=== PATIENT | female | born 1970 | race Asian ===

== ENCOUNTER 2016-11-11 14:16 | Inpatient (IN) | payer SELFPAY ==
[~2016-11-11] VITALS: Ht 162.6 cm; Wt 61.7 kg
[2016-11-11 14:30] VITALS: BP 157/112; PULSE 89; RESP 16; TEMP 97; O2SAT 97
[2016-11-11] MEDS ORDERED: ONDANSETRON 4 MG ODT TAB PO ONE (15:30)
[2016-11-11] MEDS ORDERED: ACETAMINOPHEN 325 MG TABLET PO ONE (15:30)
[2016-11-11 15:33] LABS: POTASSIUM 3.5 mmol/L (3.5-5.1)
[2016-11-11 15:34] LABS: CREATININE 0.7 mg/dL (0.55-1.30)
[2016-11-11 15:38] LABS: CALCIUM 8.4 mg/dL (8.4-11.0)
[2016-11-11 15:49] LABS: BILIRUBIN,URINE NEGATIVE (NEGATIVE); BLOOD, URINE 1+ (NEGATIVE); CLARITY/URINE CLEAR (CLEAR); COLOR,URINE YELLOW (YELLOW); GLUCOSE,URINE 2+ (NEGATIVE); KETONES,URINE 3+ (NEGATIVE); LEUKOCYTE ESTERASE ,URINE NEGATIVE (NEGATIVE); NITRITE, URINE NEGATIVE (NEGATIVE); PROTEIN URINE 1+ (NEGATIVE); UROBILINOGEN,URINE 0.2 (0.2-1.0)
[2016-11-11 15:52] LABS: HEMATOCRIT 41.1 % (36-48); HEMOGLOBIN 14.2 g/dL (12.0-16.0); MEAN CORPUSCULAR HEMOGLOBIN 30 pg (27-31); MEAN CORPUSCULAR HGB CONC 35 % (32-36); MEAN CORPUSCULAR VOLUME 87 fL (79.0-98.0); PLATELET COUNT (AUTO) 355 K/uL (130-430); RED CELL DISTRIBUTION WIDTH 12.8 % (9.0-15.0); WHITE BLOOD COUNT (AUTO) 12.2 K/uL (4.8-10.8)
[2016-11-11 15:53] LABS: RED BLOOD CELL COUNT(AUTO) 4.51 MIL/uL (4.2-6.2)
[2016-11-11 16:23] LABS: ATYPICAL LYMPHOCYTES % 0 % (0-0); BAND % (MANUAL) 4 % (0-6); BASOPHILS % (MANUAL) 0 % (0-2); EOSINOPHILS % (MANUAL) 0 % (0-7); LYMPHOCYTES % (MANUAL) 18 % (20-46); MONOCYTES % (MANUAL) 3 % (0-11)
[2016-11-11 16:24] LABS: INR 0.9 (0.8-1.2); PROTHROMBIN TIME 9.8 SECS (9.5-12.5)
[2016-11-11 16:33] LABS: ALBUMIN 3.8 g/dL (3.4-4.8); TOTAL BILIRUBIN 0.7 mg/dL (0.0-1.0); TOTAL PROTEIN, SERUM 8.6 g/dL (6.4-8.3)
[2016-11-11 16:59] LABS: RBC,URINE 0-3 /HPF (0-3); WBC,URINE 0-3 /HPF (0-3)
[2016-11-11 17:00] LABS: BACTERIA,URINE FEW /HPF (None Seen); MUCUS,URINE 2+ /LPF (None Seen)
[2016-11-11] MEDS ORDERED: ONDANSETRON HCL 4 MG/2 ML VIAL IVP ONE ×2 (17:00→18:30)
[2016-11-11] MEDS ORDERED: MORPHINE 4 MG/ML INJ. SYRINGE IVP ONE ×2 (17:00→18:30)
[2016-11-11] MEDS ORDERED: NACL 0.9% 1,000 ML IV ONE ×2 (17:00→18:30)
[2016-11-11] MEDS ORDERED: OCTREOTIDE ACETATE 100 MCG/ML AMP IVP ONE (18:00)
[2016-11-11 19:30] VITALS: BP 174/88; PULSE 95; RESP 16; TEMP 97.6; O2SAT 96
[2016-11-11] MEDS ORDERED: ONDANSETRON HCL 4 MG/2 ML VIAL IVP PRN (19:30)
[2016-11-11] MEDS ORDERED: INSULIN ASPART 100 UNITS/ML, 10 ML VIAL (NovoLOG) SUBCUT PRN (19:30)
[2016-11-11] MEDS ORDERED: MORPHINE 2 MG/ML INJ. SYRINGE IVP ONE (19:30)
[2016-11-11] MEDS ORDERED: ACETAMINOPHEN 650 MG SUPP.RECT RC PRN (19:30)
[2016-11-11] MEDS ORDERED: MORPHINE 2 MG/ML INJ. SYRINGE IVP PRN (19:30)
[2016-11-11] MEDS: PANTOPRAZOLE SODIUM 40 MG/VIAL (PROTONIX) IVP SCH (21:13)
[2016-11-11] MEDS: POTASSIUM CHLORIDE 10 MEQ in NACL 0.9% 1,000 ML IV SCH (22:20)
[2016-11-12] VITALS (7 sets, daily range): BP systolic 109–157; BP diastolic 65–85; PULSE 98–108; RESP 16–18; TEMP 96.9–98.9; O2SAT 95–98
[2016-11-12] MEDS: POTASSIUM CHLORIDE 10 MEQ in NACL 0.9% 1,000 ML IV SCH ×4 (02:42→22:59)
[2016-11-12 06:26] LABS: MEAN CORPUSCULAR VOLUME 87 fL (79.0-98.0); RED CELL DISTRIBUTION WIDTH 13.1 % (9.0-15.0)
[2016-11-12 07:42] LABS: ALBUMIN 2.8 g/dL (3.4-4.8); AMYLASE 807 U/L (0-100); ANION GAP 15 (5-15); CHLORIDE 99 mmol/L (98-107); CREATININE 0.59 mg/dL (0.55-1.30); GLUCOSE 223 mg/dL (70-99); POTASSIUM 3.2 mmol/L (3.5-5.1); SODIUM SERUM 132 mmol/L (136-145); THYROID STIMULATING HORMONE 0.51 uIu/mL (0.34-4.82); TOTAL BILIRUBIN 0.7 mg/dL (0.0-1.0); TOTAL PROTEIN, SERUM 6.9 g/dL (6.4-8.3); UREA NITROGEN, BLOOD 11 mg/dL (8-21)
[2016-11-12] MEDS: PANTOPRAZOLE SODIUM 40 MG/VIAL (PROTONIX) IVP SCH (09:39)
[2016-11-12 09:52] LABS: RED BLOOD CELL COUNT(AUTO) 3.45 MIL/uL (4.2-6.2); WHITE BLOOD COUNT (AUTO) 11.1 K/uL (4.8-10.8)
[2016-11-12 09:53] LABS: MEAN CORPUSCULAR HEMOGLOBIN 29 pg (27-31); MEAN CORPUSCULAR HGB CONC 33 % (32-36); PLATELET COUNT (AUTO) 283 K/uL (130-430)
[2016-11-12 09:56] LABS: HEMOGLOBIN 12.9 g/dL (12.0-16.0)
[2016-11-12 09:57] LABS: HEMATOCRIT 31.5 % (36-48)
[2016-11-12 10:02] LABS: GFR AFRICAN AMERICAN 142 mL/min (>90)
[2016-11-12] MEDS ORDERED: POTASSIUM CHLORIDE 40 MEQ, MAGNESIUM SULFATE 2 GM in NS 250 ML IV ONE (11:30)
[2016-11-12 12:35] LABS: BAND % (MANUAL) 10 % (0-6)
[2016-11-12 12:36] LABS: BASOPHILS % (MANUAL) 0 % (0-2); EOSINOPHILS % (MANUAL) 0 % (0-7); LYMPHOCYTES % (MANUAL) 7 % (20-46); MONOCYTES % (MANUAL) 3 % (0-11)
[2016-11-12 12:51] LABS: LIPASE 7175 U/L (73-393)
[2016-11-12 13:07] LABS: ASPARTATE AMINOTRANSFERASE 44 U/L (10-37)
[2016-11-12 13:11] LABS: CALCIUM 6.4 mg/dL (8.4-11.0)
[2016-11-12 13:13] LABS: BILIRUBIN,DIRECT < 0.1 mg/dL (0.0-0.3)
[2016-11-12 13:30] LABS: ALANINE AMINOTRANSFERASE 15 U/L (12-78)
[2016-11-12 14:03] LABS: CHOLESTEROL 316 mg/dL (<200); HDL CHOLESTEROL 27 mg/dL (>55); LDL CHOLESTEROL 77 mg/dL (<100)
[2016-11-12 14:42] LABS: TRIGLYCERIDES 2613 mg/dL (30-150)
[2016-11-12] MEDS ORDERED: GEMFIBROZIL 600 MG TABLET (LOPID) PO ONE (17:45)
[2016-11-12] MEDS: GEMFIBROZIL 600 MG TABLET (LOPID) PO SCH (21:38)
[2016-11-13 04:09] VITALS: BP 120/81; PULSE 96; RESP 16; TEMP 97.8; O2SAT 97
[2016-11-13] MEDS: POTASSIUM CHLORIDE 10 MEQ in NACL 0.9% 1,000 ML IV SCH ×2 (06:27→12:12)
[2016-11-13 06:35] LABS: HEMATOCRIT 29.7 % (36-48); HEMOGLOBIN 10.2 g/dL (12.0-16.0); MEAN CORPUSCULAR HEMOGLOBIN 31 pg (27-31); MEAN CORPUSCULAR HGB CONC 34 % (32-36); MEAN CORPUSCULAR VOLUME 89 fL (79.0-98.0); PLATELET COUNT (AUTO) 195 K/uL (130-430); RED BLOOD CELL COUNT(AUTO) 3.34 MIL/uL (4.2-6.2); RED CELL DISTRIBUTION WIDTH 13.7 % (9.0-15.0); WHITE BLOOD COUNT (AUTO) 9.4 K/uL (4.8-10.8)
[2016-11-13 06:53] LABS: ALANINE AMINOTRANSFERASE 16 U/L (12-78); ALBUMIN 2.6 g/dL (3.4-4.8); AMYLASE 392 U/L (0-100); ANION GAP 7 (5-15); ASPARTATE AMINOTRANSFERASE 15 U/L (10-37); BILIRUBIN,DIRECT < 0.1 mg/dL (0.0-0.3); CHLORIDE 108 mmol/L (98-107); CHOLESTEROL 255 mg/dL (<200); CREATININE 0.58 mg/dL (0.55-1.30); GLUCOSE 120 mg/dL (70-99); HDL CHOLESTEROL 34 mg/dL (>55); LDL CHOLESTEROL 37 mg/dL (<100); POTASSIUM 3.9 mmol/L (3.5-5.1); SODIUM SERUM 138 mmol/L (136-145); TOTAL BILIRUBIN 0.6 mg/dL (0.0-1.0); TOTAL PROTEIN, SERUM 6.7 g/dL (6.4-8.3); TRIGLYCERIDES 942 mg/dL (30-150); UREA NITROGEN, BLOOD 7 mg/dL (8-21)
[2016-11-13 07:39] LABS: GFR AFRICAN AMERICAN 145 mL/min (>90)
[2016-11-13 08:05] VITALS: BP 115/76; PULSE 99; RESP 18; TEMP 98.8; O2SAT 100
[2016-11-13 08:13] LABS: LIPASE 4117 U/L (73-393)
[2016-11-13 09:29] LABS: ATYPICAL LYMPHOCYTES % 0 % (0-0); BAND % (MANUAL) 13 % (0-6); BASOPHILS % (MANUAL) 0 % (0-2); EOSINOPHILS % (MANUAL) 0 % (0-7); LYMPHOCYTES % (MANUAL) 8 % (20-46); MONOCYTES % (MANUAL) 2 % (0-11)
[2016-11-13] MEDS: GEMFIBROZIL 600 MG TABLET (LOPID) PO SCH (09:38)
[2016-11-13] MEDS: PANTOPRAZOLE SODIUM 40 MG/VIAL (PROTONIX) IVP SCH (09:38)
[2016-11-13 11:29] VITALS: BP 115/75; PULSE 92; RESP 16; TEMP 97.4; O2SAT 97
[2016-11-13 12:45] VITALS: BP 115/75; PULSE 92; RESP 16; TEMP 97.4; O2SAT 97
== END 2016-11-13 14:10 | disposition home or self-care (01) | DRG 440 ==
LOC: SED 14:16 → STU 18:41
PROVIDERS: ADMIT Internal Medicine; ATTEND Internal Medicine
DX: K85.90 Acute pancreatitis without necrosis or infection, unspecified (principal); E78.1 Pure hyperglyceridemia; I10 Essential (primary) hypertension; E27.8 Other specified disorders of adrenal gland; N85.8 Other specified noninflammatory disorders of uterus
CPT/HCPCS: 36415; 71010; 76700-TC; 80048; 80053; 80061; 80076; 81000-TC; 82150-TC; 82962; 83690-TC; 83735-TC; 84443-TC; 85007; 85027; 85610-TC; 85730-TC; 96361; 96374; 96375; 96376; 99285; C9113; J2270; J2354; J2405; J3475; J3480; J7030; J7050; Q0162